=== PATIENT | female | born 1965 ===

== ENCOUNTER → 2021-05-08 15:10 | Outpatient (CLI) | payer MEDICARE, SELFPAY ==
--- NOTE | 2021-05-08 15:12 | DI.RAD.S_ITS ---
PROCEDURE: XR ANKLE LT MIN 3V INDICATIONS: Persistent left ankle pain secondary to inversion sprain TECHNIQUE: 3 views of the ankle were acquired. COMPARISON: None. FINDINGS: Bones: No fractures or dislocations. Ankle mortise is normally aligned. No suspicious bony lesions. Degenerative osteoarthritic change at the tibiotalar joint is moderate to moderately severe, and there are 2 diagonal fixation screws crossing the base of the medial malleolus. Soft tissues: No tibiotalar joint effusion. Achilles tendon appears normal. 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 Prior fixation screws crossing the base of the medial malleolus show no sign of device loosening or disruption. Dictated by: Lorenzo Combs M.D. on 05/08/2021 at 15:31 Approved by: Lorenzo Combs M.D. on 05/08/2021 at 15:33
== END ==
PROVIDERS: PCP Family Medicine; Referring Provider Family Medicine; Visit Provider Family Medicine
DX: M25.572 Pain in left ankle and joints of left foot (principal); M19.172 Post-traumatic osteoarthritis, left ankle and foot; M76.62 Achilles tendinitis, left leg; G89.29 Other chronic pain; T14.90XS Injury, unspecified, sequela
CPT/HCPCS: 73610

== ENCOUNTER → 2021-07-24 11:58 | Outpatient (CLI) | payer MEDICARE, SELFPAY | PROVIDERS: PCP Family Medicine; Referring Provider Internal Medicine Hematology & Oncology; Visit Provider Internal Medicine Hematology & Oncology | DX: D48.1 Neoplasm of uncertain behavior of connective and other soft tissue (principal); M25.572 Pain in left ankle and joints of left foot; Z53.20 Procedure and treatment not carried out because of patient's decision for unspecified reasons ==

== ENCOUNTER → 2021-07-25 11:19 | Outpatient (CLI) | payer MEDICARE, SELFPAY ==
--- NOTE | 2021-07-25 11:40 | DI.CT.S_ITS ---
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 COMPARISON: None. FINDINGS: Image quality: Suboptimal secondary to streak artifact from hardware fixation of the medial malleolus. Bones: Severe tibiotalar joint degeneration. No acute fracture identified. Subtalar joint degeneration also present. Scattered degenerative subchondral sclerosis and spurring. Heterotopic ossification seen at the distal tibiofibular syndesmosis. Soft tissues: Diffuse hindfoot circumferential subcutaneous edema. A discrete mass is not well seen. There is ill-defined subcutaneous stranding present along the anteromedial distal tibia/fibula. Muscles are grossly unremarkable. The alignment appears anatomic IMPRESSION: Severe tibiotalar joint degeneration with near [id number] appearance. A discrete mass is not well seen. If clinically warranted, more detailed examination of the soft tissues could be performed with contrast enhanced MRI. Dictated by: Jesus Knowles M.D. on 07/25/2021 at 13:38 Approved by: Jesus Knowles M.D. on 07/25/2021 at 13:53
== END ==
PROVIDERS: PCP Family Medicine; Referring Provider Internal Medicine Hematology & Oncology; Visit Provider Internal Medicine Hematology & Oncology
DX: D48.1 Neoplasm of uncertain behavior of connective and other soft tissue (principal); M25.572 Pain in left ankle and joints of left foot; M19.072 Primary osteoarthritis, left ankle and foot
CPT/HCPCS: 73702

== ENCOUNTER → 2021-07-26 15:05 | Outpatient (CLI) | payer MEDICARE, SELFPAY | PROVIDERS: PCP Family Medicine; Visit Provider Registered Nurse | DX: N89.8 Other specified noninflammatory disorders of vagina (principal) | CPT/HCPCS: 87210 ==

== ENCOUNTER → 2021-07-31 11:26 | Outpatient (CLI) | payer MEDICARE, SELFPAY ==
--- NOTE | 2021-07-31 11:27 | DI.US.S_ITS ---
PROCEDURE: US PELVIC COMPLETE INDICATIONS: PAIN; HISTORY ENDOMETRIAL HYPERPLASIA TECHNIQUE: Real-time scanning was performed of the pelvic organs, with image documentation. Additional endovaginal scanning was necessary due to incomplete visualization of the adnexal and endometrial structures by transabdominal scanning. COMPARISON: None. FINDINGS: Uterus: Uterus is normal in size at 4.6 x 2.6 x 3.1 cm. The endometrium measures 4.5 mm in combined thickness. Ovaries: 15 mm simple right ovarian cyst; otherwise normal appearance of the ovaries bilaterally. No adnexal masses seen. Other: No pathologic free abdominal or pelvic fluid. IMPRESSION: 1. Normal endometrial thickness measuring 4.5 mm. 2. 15 mm simple right ovarian cyst. Dictated by: Bharat Monroy RR Interpreted: Joaquin Logan MD on 07/31/2021 at 13:26 Transcribed by: MORELIA on 07/31/2021 at 13:28 Approved by: Joaquin Logan M.D. on 07/31/2021 at 13:43
== END ==
PROVIDERS: PCP Family Medicine; Referring Provider Registered Nurse; Visit Provider Registered Nurse
DX: R10.2 Pelvic and perineal pain (principal); R93.89 Abnormal findings on diagnostic imaging of other specified body structures; N83.291 Other ovarian cyst, right side
CPT/HCPCS: 76830; 76856

== ENCOUNTER 2021-10-16 19:04 | Emergency (ER) | payer MEDICARE, SELFPAY ==
[2021-10-16] VITALS (12 sets, daily range): BP systolic 124–143; BP diastolic 70–90; PULSE 63–83; RESP 18–32; TEMP 37.2; O2SAT 96–100; BMI 27.2
[2021-10-16 20:49] LABS: Add Manual Diff / Slide Review NO; Basophils Absolute Auto 100 /uL (0-100); Basophils Percent Auto 1.1 % (0-2); Eosinophils Absolute Auto 100 /uL (0-450); Hematocrit 37.6 % (36-46); Hemoglobin 12.7 g/dL (12.0-16.0); Lymphocytes Absolute Auto 1900 /uL (1100-4500); Lymphocytes Percent Auto 33.4 % (25-40); Mean Corpuscular HGB Conc 33.8 % (30-36); Mean Corpuscular Hemoglobin 30.9 PG (26-34); Mean Corpuscular Volume 91.3 fL (80-100); Monocytes Absolute Auto 400 /uL (0-900); Monocytes Percent Auto 7.7 % (3-14); Neutrophils Absolute Auto 3100 /uL (1500-7000); Neutrophils Percent Auto 55.8 % (50-75); Platelet Count 226 X10^3/uL (150-400); Red Blood Cell Count 4.12 X10^6/uL (4.0-5.2); White Blood Cell Count 5.6 X10^3/uL (4.5-11.0)
[2021-10-16 21:01] LABS: Alanine Aminotransferase 32 IU/L (<35); Albumin 4.4 g/dL (3.5-5.0); Albumin Globulin Ratio 1.6 (1.0-2.8); Alkaline Phosphatase 87 U/L (38-126); Aspartate Aminotransferase 38 IU/L (14-36); BUN Creatinine Ratio 21.2 (6-22); Bilirubin Total 0.4 mg/dL (0.2-1.3); Blood Urea Nitrogen 14 mg/dL (7-17); Calcium 9.3 mg/dL (8.4-10.2); Carbon Dioxide 26 mmol/L (22-32); Chloride 107 mmol/L (98-107); Estimated Glomerular Filt Rate > 60.0 mL/min (>60); Globulin 2.7 g/dL (1.7-4.1); Glucose 102 mg/dL (70-100); HEMOLYSIS 23 (0-50); Lipase 108 U/L (23-300); Potassium 3.5 mmol/L (3.4-5.1); Sodium 141 mmol/L (137-145); Total Protein 7.1 g/dL (6.3-8.2)
[2021-10-16] MEDS: SODIUM CHLORIDE 0.9% 1,000 ML 1000 ML IV (21:26)
[2021-10-16 21:29] LABS: CKMB % Relative Index 0.7 % (1.5-5.0); Creatine Kinase 176 U/L (30-135); Creatine Kinase MB 1.29 ng/mL (<2.37); Troponin I < 0.012 ng/mL (0.01-0.034)
--- NOTE | 2021-10-16 21:47 | DI.CT.S_ITS ---
PROCEDURE: CT ABDOMEN PELVIS W CON INDICATIONS: severe pain lower abdomen TECHNIQUE: After the administration of intravenous contrast, axial sections acquired from the lung bases to the pubic symphysis. Coronal and sagittal reformats were performed. For radiation dose reduction, the following was used: automated exposure control, adjustment of mA and/or kV according to patient size. COMPARISON: None. FINDINGS: Image quality: Excellent. Lung bases: Unremarkable. Heart: No significant findings. ABDOMEN: Liver: Multiple tiny hypodensities throughout both lobes of the liver are too small to characterize, but most likely represent cysts. Gallbladder: Unremarkable. Biliary ducts: Unremarkable. Pancreas: Unremarkable. Spleen: A 1.8 cm circumscribed hypoattenuating lesion in the posterior spleen is most likely benign. Adrenal Glands: Unremarkable. Kidneys and Ureters: Unremarkable. Stomach and Bowel: A few diverticula are seen in the colon without definite signs acute diverticulitis. No signs of small bowel obstruction. The appendix is not definitely visualized, but there are no secondary signs of acute appendicitis. Peritoneum: No abnormal intraperitoneal fluid. No free air. Ventral Wall: No hernias. Abdominal Nodes: No retroperitoneal or mesenteric adenopathy by size criteria. Vessels: Aorta and inferior vena cava are normal in size. PELVIS: Pelvic Organs: Unremarkable. Bladder: Unremarkable. Pelvic Nodes: No enlarged lymph nodes. Miscellaneous: No hernias are seen. Bones: There is mild dextroconvex curvature of the spine and multilevel degenerative changes. Mild multilevel degenerative retrolistheses are seen in the lumbar spine. IMPRESSION: 1. No acute abnormality is identified in the abdomen or pelvis to account for the reported pain. 2. Mild colonic diverticulosis without signs of acute diverticulitis. Dictated by: Roc Morris M.D. on 10/16/2021 at 22:49 Approved by: Roc Morris M.D. on 10/16/2021 at 22:56
--- NOTE | 2021-10-16 21:48 | ED.ABDPAIN ---
HPI - Abdominal Pain General Chief Complaint: Abdominal Pain Stated Complaint: ovarian cyst, heart is acting odd Time Seen by Provider: 10/16/21 20:32 Source: patient Mode of arrival: Ambulatory Limitations: no limitations History of Present Illness HPI narrative: 56-year-old female former smoker with which she reports has a relatively recently diagnosed ovarian cyst presents with her significant other and a chief complaint of lower abdominal pain over the past day or 2 which started in her right lower quadrant and is now long her suprapubic region and radiates to the left side. She states that her discomfort seems to be made worse when she moves and improves with rest. She denies any fever or chills. She denies any nausea, vomiting. She does state that she thinks she has had some increased urination over the past few days but denies any burning, urgency or hematuria. She denies any injury. She has had no recent travel. Also she reports some palpitations which have started over the past day or so but denies chest pain or trouble breathing Related Data Previous Rx's Medication Instructions Recorded diphenhydramine HCl 25 mg capsule 25 mg PO NOW #2 cap 07/24/21 (Benadryl) clonazepam 0.5 mg tablet 0.5 mg PO DAILY PRN #30 tab 09/11/21 sertraline 25 mg tablet 12.5 mg PO DAILY #45 tab 09/11/21 sumatriptan succinate 100 mg See Rx Instructions PO .COMPLEX 09/11/21 tablet (Imitrex) #20 tab pseudoephedrine HCl 240 mg See Rx Instructions .ROUTE 10/01/21 tablet,extended release 24 hr .COMPLEX #30 tab (Sudafed 24 Hour) hydrocodone 5 mg-acetaminophen 325 1 tab PO Q4-6H PRN #10 tab 10/16/21 mg tablet ketorolac 10 mg tablet 10 mg PO Q6H PRN #14 tab 10/16/21 ondansetron 4 mg disintegrating 4 mg PO TID-QID PRN #10 tab 10/16/21 tablet Allergies Allergy/AdvReac Type Severity Reaction Status Date / Time adhesive Allergy Mild rash Verified 10/16/21 19:19 iodine Allergy Mild rash Verified 10/16/21 19:19 Review of Systems Review of Systems Narrative: GENERAL: See HPI HEENT: Denies sinus pain, ear pain, sore throat, difficulty swallowing, dizziness. RESPIRATORY: Denies dyspnea, cough, wheezing, hemoptysis, sputum. CARDIOVASCULAR: Denies chest pain, palpitations, orthopnea, edema, GASTROINTESTINAL: See HPI : See HPI MUSCULOSKELETAL: denies weakness, joint pain, or bony pain SKIN: Denies rash, skin lesions, or other NEUROLOGIC: Denies weakness, headache, numbness, change in speech, confusion, seizures, incoordination. PSYCHIATRIC: No concerning psychosocial issues. 12 point review of systems is negative except for those stated above Patient History Medical History Abnormal Pap smear of cervix Achilles tendinitis of left lower extremity Cervical cancer screening Cervical somatic dysfunction Cervical spine disease (~1999) Chicken pox Chronic back pain (~2017) COVID-19 vaccine first dose declined Cranial somatic dysfunction Dysuria Fibromyalgia Foot pain (~1982) Gout Hypoglycemia Left ankle pain Left forearm pain Low back pain with bilateral sciatica Lumbar region somatic dysfunction Lumbar spine pain (~1999) Migraine Mononucleosis Mumps Osteoporosis Pelvic pain Pelvic somatic dysfunction Pigmented villonodular synovitis of left foot (~1987) Sacral region somatic dysfunction Seasonal allergies Segmental and somatic dysfunction of abdomen and other regions Short-term memory loss Somatic dysfunction of lower extremity Stress and adjustment reaction Thickened endometrium Thoracic region somatic dysfunction Upper extremity somatic dysfunction Vaginal discharge Surgical History Anesthesia History of appendectomy (~1977) History of section (~1992) History of surgery Family History Father Cancer Diabetes mellitus History of heart disease Hyperlipidemia Hypertension Mother History of heart disease Hypertension Kidney disease Sister Diabetes mellitus Grandfather Kidney disease Social History Smoking Status: Former smoker substance use type: marijuana Smoking Status: Former smoker alcohol intake frequency: other Substance Use Type: marijuana Exam Narrative Exam Narrative: GENERAL: [56] year old patient appears stated age. Well-developed patient, in mild distress. HEAD: Atraumatic. Normocephalic. EYES: Pupils equal round and reactive. Extraocular motions intact. No scleral icterus. No injection or drainage. ENT: Nose without bleeding, purulent drainage. Throat without erythema, tonsillar hypertrophy or exudate. Airway patent. NECK: Trachea midline. Non tender CARDIOVASCULAR: Regular rate and rhythm without murmurs, gallops, or rubs. RESPIRATORY: Clear to auscultation. Breath sounds equal bilaterally. No wheezes, rales, or rhonchi. GASTROINTESTINAL: Abdomen soft, non-tender, nondistended. EXTREMITIES: No edema or joint tenderness. BACK: Nontender without deformity or crepitance. No flank tenderness. NEURO: AOx3. SKIN: No rash or erythema of visible areas Initial Vital Signs Initial Vital Signs: Vital Signs Temperature 99 F 10/16/21 19:10 Pulse Rate 83 10/16/21 19:10 Respiratory Rate 18 10/16/21 19:10 Blood Pressure 143/90 H 10/16/21 19:10 Pulse Oximetry 100 10/16/21 19:10 Course Orders Ordered: ED Orders 10/16/21 20:30 Complete Blood Count AUTO DIFF Stat Comprehensive Metabolic Panel Stat Lipase Stat Troponin & CK Cardiac Panel Stat 10/16/21 20:39 EKG-12 Lead Stat 10/16/21 21:47 CT abdomen pelvis w con Stat Discontinued Medications Hydrocodone Bitart/Acetaminophen (Hydrocodone/Acet 5/325 Prepack) 1 bottle MISC SEEINSTR ONE Stop: 10/16/21 23:32 Last Admin: 10/16/21 23:50 Dose: 1 bottle Documented by: CARRILLO Diphenhydramine HCl (Diphenhydramine 50 Mg/Ml Vial) 25 mg IV NOW ONE Stop: 10/16/21 21:58 Last Admin: 10/16/21 22:11 Dose: 25 mg Documented by: CARRILLO Sodium Chloride (Normal Saline 0.9%) 1,000 mls @ 150 mls/hr IV CONT ANAY Sodium Chloride (Normal Saline 0.9%) 1,000 mls @ 1,000 mls/hr IV BOLUS ONE Stop: 10/16/21 21:47 Last Infusion: 10/16/21 22:28 Dose: 0 mls/hr Documented by: Admin: 10/16/21 21:26 Dose: 1,000 mls/hr Documented by: CARRILLO Methylprednisolone (Methylprednisolone 125 Mg/2 Ml Vial) 125 mg IV NOW ONE Stop: 10/16/21 21:58 Last Admin: 10/16/21 22:11 Dose: 125 mg Documented by: CARRILLO Ondansetron HCl (Ondansetron 4 Mg Odt Prepack) 1 bottle MISC SEEINSTR ONE Stop: 10/16/21 23:32 Last Admin: 10/16/21 23:50 Dose: 1 bottle Documented by: CARRILLO Vital Signs Vital signs: Vital Signs - 8 hr 10/16/21 19:10 10/16/21 20:23 10/16/21 20:24 Temperature 99 F Pulse Rate 83 63 66 Respiratory Rate 18 21 19 Blood Pressure 143/90 H 126/73 Pulse Oximetry 100 99 99 10/16/21 20:30 10/16/21 21:00 10/16/21 21:29 Temperature Pulse Rate 69 69 77 Respiratory Rate 21 32 H 28 H Blood Pressure 129/75 133/74 Pulse Oximetry 98 100 99 10/16/21 21:30 10/16/21 22:00 10/16/21 22:38 Temperature Pulse Rate 71 65 75 Respiratory Rate 26 H 18 20 Blood Pressure 124/70 128/74 Pulse Oximetry 99 99 96 10/16/21 23:00 10/16/21 23:30 10/16/21 23:38 Temperature Pulse Rate 66 66 67 Respiratory Rate 28 H 22 25 H Blood Pressure 130/85 Pulse Oximetry 97 97 97 MDM - Abdominal Pain Lab Data Result diagrams: 10/16/21 20:30 10/16/21 20:30 Labs: Lab Results 10/16/21 10/16/21 10/16/21 Range/Units 20:30 20:30 20:30 WBC 5.6 (4.5-11.0) X10^3/uL RBC 4.12 (4.0-5.2) X10^6/uL Hgb 12.7 (12.0-16.0) g/dL Hct 37.6 (36-46) % MCV 91.3 (80-100) fL MCH 30.9 (26-34) PG MCHC 33.8 (30-36) % RDW 13.0 (11.6-14.8) % Plt Count 226 (150-400) X10^3/uL Neut % (Auto) 55.8 (50-75) % Lymph % (Auto) 33.4 (25-40) % [place] % (Auto) 7.7 (3-14) % Eos % (Auto) 2.0 (2-4) % Baso % (Auto) 1.1 (0-2) % Neut # (Auto) 3100 (8271-0954) /uL Lymph # (Auto) 1900 (1243-9515) /uL [place] # (Auto) 400 (0-900) /uL Eos # (Auto) 100 (0-450) /uL Baso # (Auto) 100 (0-100) /uL Sodium 141 (137-145) mmol/L Potassium 3.5 (3.4-5.1) mmol/L Chloride 107 (98-107) mmol/L Carbon Dioxide 26 (22-32) mmol/L BUN 14 (7-17) mg/dL Creatinine 0.66 (0.52-1.04) mg/dL Estimated GFR > 60.0 (>60) mL/min BUN/Creatinine Ratio 21.2 (6-22) Glucose 102 H (70-100) mg/dL Calcium 9.3 (8.4-10.2) mg/dL Total Bilirubin 0.4 (0.2-1.3) mg/dL AST 38 H (14-36) IU/L ALT 32 (<35) IU/L Alkaline Phosphatase 87 (38-126) U/L Total Creatine Kinase 176 H (30-135) U/L CK-MB (CK-2) 1.29 (<2.37) ng/mL CK-MB (CK-2) Rel Index 0.7 L (1.5-5.0) % Troponin I < 0.012 (0.01-0.034) ng/mL Total Protein 7.1 (6.3-8.2) g/dL Albumin 4.4 (3.5-5.0) g/dL Globulin 2.7 (1.7-4.1) g/dL Albumin/Globulin Ratio 1.6 (1.0-2.8) Lipase 108 (23-300) U/L Point of care testing: Urine Dip Bedside Urine Glucose Negative Bedside Urine Bilirubin - Negative Bedside Urine Ketone - Negative Urine Specific [place] 1.030 Bedside Urine Occult Blood - Negative Bedside Urine pH 6.0 Bedside Urine Protein - Negative Bedside Urine Urobilinogen - Negative Bedside Urine Nitrite - Negative Bedside Urine Leukocytes - Negative Esterase MDM Narrative Medical decision making narrative: Patient with reassuring history and physical exam. Labs show no significant abnormalities and CT of the abdomen and pelvis was unremarkable. Urine showed no signs of infection. Multiple diagnoses including diverticulitis, bowel obstruction, urine infection, kidney stone and others considered but thought unlikely given her findings. Return precautions discussed and questions answered to her apparent satisfaction Discharge Plan Departure Patient Disposition: Home Clinical Impression: Abdominal pain Instructions: DI for Abdominal Pain-Adult Activity Restrictions/Additional Instructions: *You have been diagnosed with [lower abdominal pain with a very reassuring history, physical exam, labs and CT scan. *What to do: *Please continue to take your regular medications as directed. [ x] New medication prescriptions sent to your pharmacy: [[facility] ] [ ] New medication written as a paper prescription [ ] No new medications given *Please follow up with your primary care provider in 2-3 days, call for an appointment. Let them know you were seen in the Emergency Department and that we ask that you be seen in follow up. We will electronically transmit a record of today's note if your PCP is in our system *If you do not have a primary care provider please contact the [facility] Resource line at [phone]. They will ask some questions about your medical history and help get you set up with a doctor in the community. *Return to Emergency Department if you should have any new, worsening or concerning symptoms, such as [fever greater than 101 F, shaking chills, worsening pain, persistent vomiting or other bothersome symptoms] You have been prescribed a short course of narcotic medications. These are potentially dangerous and addictive medications that should be used carefully. While on these medications you cannot drive or operate heavy machinery. Additionally, you cannot sign legal documents or perform any duties such as this. 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 Please understand that we cannot provide further refills of narcotics or controlled substances through the ED and your pain management will need to be through your Primary Care Provider Prescriptions: New hydrocodone-acetaminophen 5-325 mg tablet 1 tab PO Q4-6H PRN (Reason: pain) Qty: 10 0RF ketorolac 10 mg tablet 10 mg PO Q6H PRN (Reason: pain) Qty: 14 0RF ondansetron 4 mg tablet,disintegrating 4 mg PO TID-QID PRN (Reason: nausea and vomiting) Qty: 10 0RF No Action sertraline 25 mg tablet 12.5 mg PO DAILY Qty: 45 1RF Rx Instructions: Increase to 1 tab daily after two weeks if no effect is noticed sumatriptan succinate [Imitrex] 100 mg tablet See Rx Instructions PO .COMPLEX Qty: 20 1RF Rx Instructions: take 1 tab at onset of headache; if no relief, may repeat 1 tab after at least 2 hrs; max = 2 tabs/24 hrs PO clonazepam 0.5 mg tablet 0.5 mg PO DAILY PRN (Reason: anxiety) Qty: 30 0RF Sudafed 24 Hour 240 mg tablet extended release 24 hr See Rx Instructions .ROUTE .COMPLEX Qty: 30 0RF Dose Instruction: TAKE 1 TABLET BY MOUTH ONCE DAILY NEEDED FOR NAUSEA FOR NASAL CONGESTION Rx Instructions: TAKE 1 TABLET BY MOUTH ONCE DAILY NEEDED FOR NAUSEA FOR NASAL CONGESTION diphenhydramine HCl [Benadryl] 25 mg Capsule 25 mg PO NOW Qty: 2 0RF Rx Instructions: take 2 capsules (50mg) one hour prior to exam Referrals: Paddy Engle DO [Primary Care Provider] -
[2021-10-16] MEDS: methylPREDNISolone 125 MG/2 ML VIAL IV (22:11)
[2021-10-16] MEDS: diphenhydrAMINE 50 MG/ML VIAL 25 MG IV (22:11)
[2021-10-16] MEDS: HYDROCODONE/ACET 5/325 PREPACK 1 BOTTLE MISC (23:50)
[2021-10-16] MEDS: ONDANSETRON 4 MG ODT PREPACK 1 BOTTLE MISC (23:50)
== END 2021-10-16 23:55 | disposition home or self-care (01) ==
PROVIDERS: Emergency Provider Emergency Medicine; PCP Family Medicine
DX: R10.9 Unspecified abdominal pain (principal)
CPT/HCPCS: 36415; 74177; 80053; 81003; 82550; 82553; 83690; 84484; 85025; 93005; 96361; 96374; 96375; 99284; J1200; J2930; Q9967

== ENCOUNTER → 2021-10-25 09:59 | Outpatient (CLI) | payer MEDICARE, SELFPAY ==
--- NOTE | 2021-10-25 10:00 | DI.US.S_ITS ---
PROCEDURE: US PELVIC COMPLETE INDICATIONS: F/U simple R ovarian cyst seen on 07/31/21 US TECHNIQUE: Real-time scanning was performed of the pelvic organs, with image documentation. Additional endovaginal scanning was necessary due to incomplete visualization of the adnexal and endometrial structures by transabdominal scanning. COMPARISON: [facility], CT, CT ABDOMEN PELVIS W CON, 10/16/2021, 21:55. [facility], US, US PELVIC COMPLETE, 07/31/2021, 12:26. FINDINGS: Uterus: Uterus is retroverted and normal in size at 5.6 x 1.7 x 3.7 cm. The myometrium is homogeneous. The endometrium measures 2.7 mm combined thickness. Ovaries: The right ovary measures 2.9 x 1.5 x 1.5 cm cm, with a calculated ovarian volume of 3.4 cc. The left ovary is not visualized. A 1.2 x 1.3 x 1.1 cm right ovarian simple cyst previously measured 1.5 x 1.2 x 1.2 cm. No adnexal masses are seen. Other: No pathologic free abdominal or pelvic fluid. IMPRESSION: Mildly decreased size of a 1.3 cm right ovarian cyst. We strive to produce accurate, complete, and clear reports of imaging services. To assist us in improving patient care, this report was composed using standard report templates and voice recognition software. Therefore, it may contain abnormal punctuation, insertions and/or omissions. Occasional wrong-word or sound-alike substitutions may occur. Though we review the report and make efforts to correct it, we do recommend that the report be read carefully in proper context to recognize any text inaccuracies. Dictated by: Roc Morris M.D. on 10/25/2021 at 10:38 Approved by: Roc Morris M.D. on 10/25/2021 at 10:43
== END ==
PROVIDERS: PCP Family Medicine; Referring Provider Specialist; Visit Provider Specialist
DX: R10.2 Pelvic and perineal pain (principal); N83.291 Other ovarian cyst, right side
CPT/HCPCS: 76856

== ENCOUNTER 2022-08-11 17:54 | Emergency (ER) | payer OTHER, SELFPAY ==
[2022-08-11 18:16] VITALS: BP 133/80; PULSE 69; RESP 25; TEMP 36.4; O2SAT 99; BMI 26.2
[2022-08-11] MEDS: TET,DIPH,PERTUSS(ACELL),VAC/PF 0.5 ML SYRINGE IM (20:30)
--- NOTE | 2022-08-11 20:58 | DI.RAD.S_ITS ---
PROCEDURE: XR TIBIA FIBULA LT 2V INDICATIONS: dog bite mid anterior swanson eval for FB TECHNIQUE: 2 views of the tibia and fibula were acquired. COMPARISON: None. FINDINGS: Bones: No acute fractures or dislocations. There are postsurgical changes partially visualized in the ankle with 2 fixation screws traversing the medial malleolus. There are moderate to severe degenerative changes of the left tibiotalar joint with joint space narrowing, subchondral sclerosis, and prominent osteophytosis. Soft tissues: No radiopaque foreign bodies. No suspicious soft tissue calcifications or masses. IMPRESSION: 1. No fractures or radiopaque foreign bodies within the left lower leg. Dictated by: Mark Falk M.D. on 08/11/2022 at 23:39 Approved by: Mark Falk M.D. on 08/11/2022 at 23:41
--- NOTE | 2022-08-11 20:58 | ED.ANIMALBIT ---
HPI - Animal Bite General Chief Complaint: Animal Bite Stated Complaint: Left leg dog bite cancer of left leg Time Seen by Provider: 08/11/22 20:47 Source: patient Mode of arrival: Family Vehicle History of Present Illness HPI narrative: Patient is a 57-year-old female who is here for evaluation of a dog bite to her left leg. She states that she was bitten by the neighbor's dog earlier today. She does have a history of ?cancer? in her left leg. She is not currently on any sort of chemotherapy medications. Related Data Previous Rx's Medication Instructions Recorded diphenhydramine HCl 25 mg capsule 25 mg PO NOW allergy to iodine #2 07/24/21 (Benadryl) caps sumatriptan succinate 100 mg See Rx Instructions PO .COMPLEX 09/11/21 tablet (Imitrex) #20 tabs ketorolac 10 mg tablet 10 mg PO Q6H PRN pain #14 tabs 10/16/21 hydrocodone 5 mg-acetaminophen 325 1 tab PO Q4-6H PRN pain #10 tabs 10/23/21 mg tablet ondansetron 4 mg disintegrating 4 mg PO TID-QID PRN nausea and 10/23/21 tablet vomiting #10 tabs sertraline 25 mg tablet See Rx Instructions .Route 02/10/22 .COMPLEX #45 tabs Sudafed Sinus Congestion 24HR 240 See Rx Instructions .Route 03/17/22 MG Oral Tablet Extended Release 24 .COMPLEX #30 tabs Hour pseudoephedrine HCl 240 mg See Rx Instructions .Route 05/07/22 tablet,extended release 24 hr .COMPLEX #30 tabs (Sudafed 24 Hour) clonazepam 0.5 mg tablet See Rx Instructions .Route 05/19/22 .COMPLEX #45 tabs Allergies Allergy/AdvReac Type Severity Reaction Status Date / Time adhesive Allergy Mild rash Verified 08/11/22 18:16 iodine Allergy Mild rash Verified 08/11/22 18:16 Review of Systems Musculoskeletal Musculoskeletal: Reports system reviewed and no additional complaints, except as documented Integumentary/Breasts Skin/Breast: Reports system reviewed and no additional complaints, except as documented Neurologic Neurologic: Reports system reviewed and no additional complaints, except as documented Hematologic/Lymphatic On Anticoagulants: No Patient History Medical History Abnormal Pap smear of cervix Achilles tendinitis of left lower extremity Cervical cancer screening Cervical somatic dysfunction Cervical spine disease (~1999) Chicken pox Chronic back pain (~2017) COVID-19 vaccine first dose declined Cranial somatic dysfunction Dysuria Fibromyalgia Foot pain (~1982) Gout Hypoglycemia Left ankle pain Left forearm pain Low back pain with bilateral sciatica Lumbar region somatic dysfunction Lumbar spine pain (~1999) Migraine Mononucleosis Mumps Osteoporosis Pelvic pain Pelvic somatic dysfunction Pigmented villonodular synovitis of left foot (~1987) Sacral region somatic dysfunction Seasonal allergies Segmental and somatic dysfunction of abdomen and other regions Short-term memory loss Somatic dysfunction of lower extremity Stress and adjustment reaction Thickened endometrium Thoracic region somatic dysfunction Upper extremity somatic dysfunction Vaginal discharge Surgical History Anesthesia History of appendectomy (~1977) History of section (~1992) History of surgery Family History Father Cancer Diabetes mellitus History of heart disease Hyperlipidemia Hypertension Mother History of heart disease Hypertension Kidney disease Sister Diabetes mellitus Grandfather Kidney disease Social History Smoking Status: Current every day smoker substance use type: marijuana Smoking Status: Current every day smoker alcohol intake frequency: other Substance Use Type: marijuana Exam Initial Vital Signs Initial Vital Signs: Vital Signs Temperature 97.6 F 08/11/22 18:16 Pulse Rate 69 08/11/22 18:16 Respiratory Rate 25 H 08/11/22 18:16 Blood Pressure 133/80 08/11/22 18:16 Pulse Oximetry 99 08/11/22 18:16 Oxygen Delivery Method 08/11/22 18:16 [facility] Head: normal to inspection and normocephalic Skin Other: Patient with a 1 cm x 1 cm area of redness on the distal 1/3 anterior left. There are 2 small puncture wounds in this area. No surrounding erythema. No bleeding. Neuro Sensory Exam: no sensory deficits noted Extrem Other: Bite wound left lower extremity Psych Appearance: grossly normal and well kempt Course Orders Ordered: ED Orders 08/11/22 20:58 XR tibia fibula LT 2V Stat Discontinued Medications Diphtheria/Tetanus/Acell Pertussis (Tet,Diph,Pertuss(Acell),Vac/Pf 0.5 Ml Syringe) 0.5 ml IM .ONCE ONE Stop: 08/11/22 18:29 Last Admin: 08/11/22 20:30 Dose: 0.5 ml Documented By: KP Vital Signs Vital signs: Vital Signs - 8 hr 08/11/22 23:04 08/11/22 23:04 Pulse Rate 69 Respiratory Rate 17 Blood Pressure 129/83 Pulse Oximetry 99 Oxygen Delivery Method Room Air MDM - Animal Bite Imaging Data Extremity x-ray #1: Radiologist's Impression: [address] [address] XRay Report Signed Patient: Teresa Bhatia MR#: [id number] : 1965 Acct:[id number] Age/Sex: 57 / F Date of Service: 08/11/22 Loc: ED Accession Number: [id number] ?? Procedure: XR tibia fibula LT 2V Ordering Provider: Santana Rosen D.O. PROCEDURE:? XR TIBIA FIBULA LT 2V ? INDICATIONS:? dog bite mid anterior swanson eval for FB ? TECHNIQUE:? 2 views of the tibia and fibula were acquired.? ? COMPARISON:? None. ? FINDINGS:? ? Bones:? No acute fractures or dislocations.? There are postsurgical changes partially visualized in the ankle with 2 fixation screws traversing the medial malleolus.? There are moderate to severe degenerative changes of the left tibiotalar joint with joint space narrowing, subchondral sclerosis, and prominent osteophytosis. ? Soft tissues:? No radiopaque foreign bodies.? No suspicious soft tissue calcifications or masses.? ? IMPRESSION:? ? 1. No fractures or radiopaque foreign bodies within the left lower leg.? ? ? Dictated by: Mark Falk M.D. on 08/11/2022 at 23:39 ? ? Approved by: Mark Falk M.D. on 08/11/2022 at 23:41?? [facility] Narrative Medical decision making narrative: No foreign body noted on the x-ray. Small area of redness in the left anterior swanson consistent with a dog bite. No active bleeding. No signs of infection. Her tetanus was updated. No indication for antibiotics. She is not on any sort of immunosuppression chemotherapy. Did discuss return precautions and follow-up instructions. She expressed understanding and agreement with plan. Discharge Plan Departure Patient Disposition: Home Clinical Impression: Dog bite of extremity Instructions: DI for Dog Bite Activity Restrictions/Additional Instructions: Just keep the area clean with soap and water. You can shower like normal. You can also put topical antibiotic ointment over the area. Return to the emergency department for any new or worsening symptoms like we discussed and concerns for any infection. Prescriptions: No Action sumatriptan succinate [Imitrex] 100 mg tablet See Rx Instructions PO .COMPLEX Qty: 20 1RF Rx Instructions: take 1 tab at onset of headache; if no relief, may repeat 1 tab after at least 2 hrs; max = 2 tabs/24 hrs PO sertraline 25 mg tablet See Rx Instructions .ROUTE .COMPLEX Qty: 45 3RF Dose Instruction: TAKE 1/2 TABLET BY MOUTH ONCE DAILY MAY INCREASE TO 1 TABLET DAILY AFTER 2 WEEKS IF NO EFFECT IS NOTICED. Rx Instructions: TAKE 1/2 TABLET BY MOUTH ONCE DAILY MAY INCREASE TO 1 TABLET DAILY AFTER 2 WEEKS IF NO EFFECT IS NOTICED. Sudafed Sinus Congestion 24HR 240 MG Oral Tablet Extended Release 24 Hour See Rx Instructions .ROUTE .COMPLEX Qty: 30 0RF Dose Instruction: TAKE 1 TABLET BY MOUTH ONCE DAILY NEEDED FOR NAUSEA FOR NASAL CONGESTION Rx Instructions: TAKE 1 TABLET BY MOUTH ONCE DAILY NEEDED FOR NAUSEA FOR NASAL CONGESTION Sudafed 24 Hour 240 mg tablet extended release 24 hr See Rx Instructions .ROUTE .COMPLEX Qty: 30 5RF Dose Instruction: TAKE 1 TABLET BY MOUTH ONCE DAILY NEEDED FOR NAUSEA OR NASAL CONGESTION Rx Instructions: TAKE 1 TABLET BY MOUTH ONCE DAILY NEEDED FOR NAUSEA OR NASAL CONGESTION clonazepam 0.5 mg tablet See Rx Instructions .ROUTE .COMPLEX Qty: 45 1RF Rx Instructions: Take 1/2 tablet by mouth twice daily as needed for anxiety hydrocodone-acetaminophen 5-325 mg tablet 1 tab PO Q4-6H PRN (Reason: pain) Qty: 10 0RF ondansetron 4 mg tablet,disintegrating 4 mg PO TID-QID PRN (Reason: nausea and vomiting) Qty: 10 0RF diphenhydramine HCl [Benadryl] 25 mg Capsule 25 mg PO NOW Qty: 2 0RF Rx Instructions: take 2 capsules (50mg) one hour prior to exam ketorolac 10 mg tablet 10 mg PO Q6H PRN (Reason: pain) Qty: 14 0RF Referrals: Oniel,Nahun C, DO [Primary Care Provider] - Visit Report Forms: Patient Portal/API
[2022-08-11 23:04] VITALS: BP 129/83; PULSE 69; RESP 17; O2SAT 99
--- NOTE | 2022-08-11 23:05 | PC.NURSE ---
Assessment completed by provider without RN involvement
== END 2022-08-11 23:06 | disposition home or self-care (01) ==
PROVIDERS: Emergency Provider Emergency Medicine; PCP Family Medicine
DX: S81.852A Open bite, left lower leg, initial encounter (principal); W54.0XXA Bitten by dog, initial encounter; Z23 Encounter for immunization
CPT/HCPCS: 73590; 90471; 99283; 90715

== ENCOUNTER → 2023-02-20 11:00 | Outpatient (CLI) | payer MEDICARE, SELFPAY ==
--- NOTE | 2023-02-20 12:51 | DI.RAD.S_ITS ---
PROCEDURE: XR ANKLE LT MIN 3V INDICATIONS: pain TECHNIQUE: 3 views of the ankle were acquired. COMPARISON: [facility], CR, XR ANKLE LT MIN 3V, 05/08/2021, 15:10. FINDINGS: Bones: Medial malleolus fixation. There is severe joint space narrowing of the tibiotalar joint, with associated osteophytosis and subchondral sclerosis. Soft tissues: No tibiotalar joint effusion. Achilles tendon appears normal. IMPRESSION: Severe ankle osteoarthritis. Dictated by: Kale Thomason M.D. on 02/20/2023 at 15:08 Approved by: Kale Thomason M.D. on 02/20/2023 at 15:09
--- NOTE | 2023-02-20 12:51 | DI.MG.S_ITS ---
BILATERAL DIGITAL SCREENING MAMMOGRAM 3D/2D WITH CAD: 02/20/2023 CLINICAL: Routine screening. Baseline by default. No prior exams were available for comparison. There are scattered areas of fibroglandular density in both breasts (category b / 25%-50% glandular tissue). Current study was also evaluated with a Computer Aided Detection (CAD) system. There is an oval equal density asymmetry with an obscured and circumscribed margin in the right breast middle depth medial region seen on the craniocaudal view only. There is an oval asymmetry in the left breast middle depth medial region seen on the craniocaudal view only. No other significant masses or calcifications are seen in either breast. IMPRESSION: INCOMPLETE: NEEDS ADDITIONAL IMAGING EVALUATION The oval equal density asymmetry in the right breast middle depth medial region seen on the craniocaudal view only is indeterminate. Additional views with possible ultrasound are recommended. The oval asymmetry in the left breast middle depth medial region seen on the craniocaudal view only is indeterminate. Additional views with possible ultrasound are recommended. Based on the Tyrer Cuzick model (a risk assessment model) the patient's lifetime risk is 7.0% and her 10 year risk is 2.7%. According to the ACR, ACS, and NCCN guidelines, an annual breast MRI exam along with mammogram is recommended if the patient's lifetime risk is 20% or greater. This exam was interpreted at Station ID: [id number]. NOTE: For mammograms, a report in lay terms will be sent to the patient. Approximately 15% of breast malignancies will not be visualized mammographically. In the management of a palpable breast mass, a negative mammogram must not discourage biopsy of a clinically suspicious lesion. Electronically Signed By: Luz desouza/josefa:02/20/2023 16:15:03 letter sent: Additional Imaging Needed ACR BI-RADS Category 0: Incomplete 3340F
--- NOTE | 2023-02-20 12:58 | DI.RAD.S_ITS ---
PROCEDURE: XR LUMBAR SPINE 2-3V INDICATIONS: Worsening Back pain TECHNIQUE: 3 views of the lumbar spine were acquired. COMPARISON: None. FINDINGS: Bones: 5 [id number] vertebrae are present. Convex right scoliosis, Vazquez angle of 21 ?. Severe disc height loss at L1-2. Moderate disc height loss at L2-3 and mild disc height loss at remaining levels. Opposing endplate sclerosis at L1-2. Stepwise grade 1 retrolisthesis of L1 on L2 and L2 on L3. Suspect facet arthrosis L3 through S1. Soft tissues: Overlying bowel gas pattern is normal. No suspicious soft tissue calcifications. IMPRESSION: Multilevel degenerative disc disease, most prominent at L1-2. Convex right scoliosis. Moderate multilevel facet arthrosis. Dictated by: Kale Thomason M.D. on 02/20/2023 at 15:12 Approved by: Kale Thomason M.D. on 02/20/2023 at 15:14
--- NOTE | 2023-02-20 12:58 | DI.RAD.S_ITS ---
PROCEDURE: XR THORACIC SPINE 2V INDICATIONS: Worsening Back pain TECHNIQUE: 3 views of the thoracic spine were acquired. COMPARISON: None. FINDINGS: Bones: No fractures or dislocations. No suspicious bony lesions. 12 pairs of ribs are noted, and appear intact where visualized. Mild disc height loss at T5-6. Soft tissues: No paravertebral stripe thickening. IMPRESSION: No significant degenerative changes. Dictated by: Kale Thomason M.D. on 02/20/2023 at 15:10 Approved by: Kale Thomason M.D. on 02/20/2023 at 15:12
--- NOTE | 2023-02-20 12:58 | DI.RAD.S_ITS ---
PROCEDURE: XR CERVICAL SPINE 2V OR 3V INDICATIONS: Worsening Back pain TECHNIQUE: 3 view(s) of the cervical spine were acquired. COMPARISON: None. FINDINGS: Bones: No fractures or dislocations to the C7 level. The lateral masses of C1 appear intact on the odontoid view. No suspicious bony lesions. Moderate degenerative disc disease at C5-6 and C6-7. Mild disc height loss at remaining levels. Moderate facet arthrosis at C3-4, mild at C4-5. Soft tissues: No prevertebral soft tissue swelling. IMPRESSION: Mild to moderate, multilevel degenerative disc disease. Moderate facet arthrosis at C3-4. Dictated by: Kale Thomason M.D. on 02/20/2023 at 15:09 Approved by: Kale Thomason M.D. on 02/20/2023 at 15:10
[2023-02-23 10:07] LABS: Fecal Immunochemical Test Negative (Negative)
== END ==
PROVIDERS: PCP Family Medicine; Referring Provider Family Medicine; Visit Provider Family Medicine
DX: Z12.31 Encounter for screening mammogram for malignant neoplasm of breast (principal); Z12.11 Encounter for screening for malignant neoplasm of colon; D48.1 Neoplasm of uncertain behavior of connective and other soft tissue; G89.29 Other chronic pain; M48.9 Spondylopathy, unspecified; M99.01 Segmental and somatic dysfunction of cervical region; M99.02 Segmental and somatic dysfunction of thoracic region; M99.03 Segmental and somatic dysfunction of lumbar region; M51.36 Other intervertebral disc degeneration, lumbar region; M41.86 Other forms of scoliosis, lumbar region; M47.816 Spondylosis without myelopathy or radiculopathy, lumbar region; M50.30 Other cervical disc degeneration, unspecified cervical region; M47.812 Spondylosis without myelopathy or radiculopathy, cervical region; N64.89 Other specified disorders of breast; M19.072 Primary osteoarthritis, left ankle and foot
CPT/HCPCS: 72040; 72070; 72100; 73610; 77063; 77067; 82274

== ENCOUNTER → 2023-03-25 15:40 | Outpatient (CLI) | payer MEDICARE, SELFPAY | PROVIDERS: PCP Family Medicine; Visit Provider Nurse Practitioner Family | DX: N89.8 Other specified noninflammatory disorders of vagina (principal) | CPT/HCPCS: 87210 ==

== ENCOUNTER → 2023-04-14 13:25 | Outpatient (CLI) | payer MEDICARE, SELFPAY ==
--- NOTE | 2023-04-14 13:26 | DI.US.S_ITS ---
LIMITED ULTRASOUND OF LEFT BREAST: 04/14/2023 CLINICAL: Patient returns today to evaluate a focal asymmetry in the left breast. Comparison is made to exams dated: 04/14/2023 mammogram and 02/20/2023 mammogram - [facility]. Color flow ultrasound of the left breast upper outer quadrant was performed. Armenta scale images of the real-time examination were reviewed. There is a 0.5 cm round cyst in the left breast at 10 o'clock anterior depth 3 cm from the nipple. This round cyst is hypoechoic with no posterior acoustic shadowing or enhancement. This correlates with mammography findings. Color flow imaging demonstrates that there is no vascularity present. There also is a 0.6 cm oval cyst in the left breast at 10 o'clock middle depth 3 cm from the nipple. This oval cyst is nearly anechoic with posterior acoustic enhancement. This correlates with mammography findings. Color flow imaging demonstrates that there is no vascularity present. Additionally, there is a 0.5 cm round cyst in the left breast at 12 o'clock middle depth 3 cm from the nipple. This round cyst is hypoechoic with posterior acoustic enhancement. This correlates with mammography findings. Color flow imaging demonstrates that there is no vascularity present. IMPRESSION: PROBABLY BENIGN The 0.5 cm round cyst in the left breast at 10 o'clock anterior depth is consistent with a complicated cyst and is probably benign. The 0.6 cm oval cyst in the left breast at 10 o'clock middle depth is consistent with a complicated cyst and is probably benign. The 0.5 cm round cyst in the left breast at 12 o'clock middle depth is consistent with a complicated cyst and is probably benign. A follow-up left ultrasound in 6 months is recommended to demonstrate stability. Findings and recommendations were conveyed to the patient at time of exam. This exam was interpreted at Station ID: [id number]. Electronically Signed By: Luz desouza/:04/14/2023 17:19:25 letter sent: Followup Recommended Ultrasound BI-RADS: 3 Probably benign
--- NOTE | 2023-04-14 13:26 | DI.US.S_ITS ---
LIMITED ULTRASOUND OF RIGHT BREAST: 04/14/2023 CLINICAL: Patient returns today to evaluate an asymmetry in the right breast. Comparison is made to exams dated: 04/14/2023 mammogram and 02/20/2023 mammogram - [facility]. Color flow ultrasound of the right breast 1 o'clock region was performed. Armenta scale images of the real-time examination were reviewed. There are several tiny minimally complicated cysts in the breast. One of the more conspicuous that corresponds to the mammogram is a 0.5 cm oval cyst in the right breast at 1 o'clock anterior depth 2 cm from the nipple. This oval cyst is hypoechoic with posterior acoustic enhancement. Color flow imaging demonstrates that there is no vascularity present. IMPRESSION: PROBABLY BENIGN The 0.5 cm oval cyst in the right breast is probably benign. A follow-up right ultrasound in 6 months is recommended to demonstrate stability. Findings and recommendations were conveyed to the patient at time of exam. This exam was interpreted at Station ID: [id number]. Electronically Signed By: Luz desouza/:04/14/2023 17:21:36 letter sent: Followup Recommended Ultrasound BI-RADS: 3 Probably benign
--- NOTE | 2023-04-14 13:26 | DI.MG.S_ITS ---
BILATERAL DIGITAL DIAGNOSTIC MAMMOGRAM 3D/2D: 04/14/2023 CLINICAL: Additional evaluation requested from prior study. Comparison is made to exam dated: 02/20/2023 mammogram - [facility]. Both breasts are heterogeneously dense, which may obscure small masses (category c / 51-75% glandular tissue). There is an oval 9 mm equal density focal asymmetry with an obscured and circumscribed margin in the right breast 1:00. This is seen in additional views. There are a few asymmetries in the left breast upper outer quadrant seen in additional views. No other significant masses or calcifications are seen in either breast. IMPRESSION: INCOMPLETE: NEEDS ADDITIONAL IMAGING EVALUATION Confirmation of bilateral asymmetries with additional views. Bilateral ultrasound for asymmetries in each breast is recommended and was performed immediately following this exam. Based on the Tyrer Cuzick model (a risk assessment model) the patient's lifetime risk is 10.2% and her 10 year risk is 4.1%. According to the ACR, ACS, and NCCN guidelines, an annual breast MRI exam along with mammogram is recommended if the patient's lifetime risk is 20% or greater. This exam was interpreted at Station ID: [id number]. NOTE: For mammograms, a report in lay terms will be sent to the patient. Approximately 15% of breast malignancies will not be visualized mammographically. In the management of a palpable breast mass, a negative mammogram must not discourage biopsy of a clinically suspicious lesion. Electronically Signed By: Luz desouza/:04/14/2023 17:00:49 ACR BI-RADS Category 0: Incomplete 3340F
== END ==
PROVIDERS: PCP Family Medicine; Referring Provider Family Medicine; Visit Provider Family Medicine
DX: R92.8 Other abnormal and inconclusive findings on diagnostic imaging of breast (principal); N60.02 Solitary cyst of left breast; N60.01 Solitary cyst of right breast
CPT/HCPCS: 76642; 77066; G0279

== ENCOUNTER → 2023-05-11 14:53 | Outpatient (CLI) | payer MEDICARE, SELFPAY ==
--- NOTE | 2023-05-11 | DI.MRI.S_ITS ---
PROCEDURE: MR ANKLE LT WO/W CON INDICATIONS: Villonodular synovitis (pigmented), LEFT ANKLE TECHNIQUE: Noncontrast sagittal T1 spin echo and T2 fast spin echo with fat saturation, axial proton density fast spin echo and T2 fast spin echo with fat saturation, axial T1 spin echo with fat saturation, coronal T1 spin echo and T2 fast spin echo with fat saturation through the ankle/hindfoot. Post-contrast axial, coronal, and sagittal T1 spin echo with fat saturation through the ankle/hindfoot. COMPARISON: [facility], CR, XR ANKLE LT MIN 3V, 02/20/2023, 13:05. FINDINGS: Image quality: Metal artifact related to orthopedic hardware obscures adjacent structures. Diagnostic information is obtained. Bones and joints: Postsurgical changes are seen from medial malleolar fracture fixation with associated metal artifact that obscures adjacent structures. Severe joint space narrowing is seen in the mortise joint with subchondral sclerosis, remodeling of the articular surfaces, and bulky marginal osteophyte formation that likely contributes to osseous impingement. A nonedematous ossification is seen along the anteromedial aspect of the ankle. Subchondral edema is seen at the 2nd tarsometatarsal joint. No significant joint effusions. No enhancing soft tissue mass. Medial structures: The deltoid ligament is obscured by metal artifact. The visualized portions of the spring ligament complex are intact. The posterior tibialis, flexor digitorum longus, and flexor hallucis longus tendons are intact. Mortise joint osteophyte formation is seen projecting into the tarsal tunnel with possible impingement on the posterior tibial nerve. Lateral structures: There is partial ossification of the anterior and posterior tibiofibular ligaments. The anterior talofibular, calcaneofibular, and posterior talofibular ligaments appear intact. There is tendinosis and suspected low-grade partial longitudinal tearing of the peroneus brevis tendon at the level of the distal fibula with tendon reconstitution at the level of the retrotrochlear eminence. There is mild partial effacement of the normal fat signal in the sinus tarsi. Anterior structures: Anterior mortise joint osteophyte formation mildly impinges upon the tibialis anterior tendon without significant tendinosis. The extensor hallucis longus and extensor digitorum longus tendons appear intact. Posterior and plantar structures: Achilles tendon is intact. Medial and lateral bands of the plantar fascia are of normal thickness. No abductor digiti quinti muscle atrophy to suggest Oreilly neuropathy. IMPRESSION: 1. Postsurgical changes from medial malleolar fracture fixation with associated metal artifact. 2. Severe mortise joint degenerative changes with remodeling of the articular surfaces and bulky marginal osteophyte formation that likely contributes to osseous impingement. 3. No significant joint effusion or synovial hypertophy. No enhancing soft tissue mass. 4. Posterior medial mortise joint osteophyte formation extends into the tarsal tunnel with possible impingement of the posterior tibial nerve. No significant denervation changes are seen within the foot musculature. 5. Anterior medial osteophyte formation mildly impinges upon the tibialis anterior muscle without signs of significant tendinosis or tendon tearing. 6. Tendinosis and suspected focal chronic partial longitudinal tearing of the peroneus brevis tendon at the level of the distal fibula. 7. Moderate 2nd tarsometatarsal joint osteoarthrosis. Approved by: Roc Morris M.D. on 05/15/2023 at 16:22
== END ==
PROVIDERS: PCP Family Medicine; Referring Provider Physician Assistant Medical; Visit Provider Physician Assistant Medical
DX: M19.072 Primary osteoarthritis, left ankle and foot
CPT/HCPCS: 73723; A9579

== ENCOUNTER → 2023-12-28 11:12 | Outpatient (CLI) | payer MEDICARE, SELFPAY ==
--- NOTE | 2023-12-28 11:13 | DI.MRI.S_ITS ---
PROCEDURE: MR HEAD/BRAIN WO CON INDICATIONS: memory loss TECHNIQUE: Noncontrast axial T1 spin echo, axial T2 fast spin echo, sagittal and axial FLAIR, coronal T2 fast spin echo, axial gradient echo, axial diffusion and ADC through the brain. COMPARISON: None. FINDINGS: Image quality: Excellent. CSF Spaces: Basal cisterns are patent. No extra-axial fluid collections. Ventricles are normal in size and shape. Brain: No intracranial masses or hemorrhage. Armenta/white matter interface is normal. Brainstem appears normal. Diffusion-weighted images demonstrate no acute infarct. Normal intravascular flow voids are present. Both hippocampal formations have appropriate volume, morphology and signal characteristics Skull and face: Calvarium has normal marrow signal. Orbits appear normal. Sinuses: Sinuses and mastoids are clear. IMPRESSION: Mild atrophy and white matter chronic ischemic change Approved by: Ja Walter M.D. on 12/28/2023 at 15:52
== END ==
LOC: MRI 11:12
PROVIDERS: PCP Family Medicine; Referring Provider Psychiatry & Neurology Neurology; Visit Provider Psychiatry & Neurology Neurology
DX: R41.3 Other amnesia (principal)
CPT/HCPCS: 70551

== ENCOUNTER → 2025-10-17 11:18 | Outpatient (CLI) | payer MEDICARE, SELFPAY ==
--- NOTE | 2025-10-17 11:19 | DI.RAD.S_ITS ---
PROCEDURE: XR THORACIC SPINE 3V INDICATIONS: back pain TECHNIQUE: 3 views of the thoracic spine were acquired. COMPARISON: [facility], CR, XR LUMBAR SPINE 2-3V, 10/17/2025, 11:21. [facility], CR, XR THORACIC SPINE 2V, 02/20/2023, 13:05. FINDINGS: Bones: No fractures or dislocations. No suspicious bony lesions. 12 pairs of ribs are noted, and appear intact where visualized. Mild levoscoliosis of the mid to lower thoracic spine Jenise dextroscoliosis of the thoracolumbar junction noted. No listhesis. Diffuse degenerative disc disease is most pronounced in the mid to upper lumbar and mid to upper thoracic spine. Soft tissues: No paravertebral stripe thickening. Diffuse and ground-glass predominance is noted in both lungs Bronchial wall thickening noted. IMPRESSION: Dextroscoliosis at the thoracolumbar junction. Mild levoscoliosis of the mid to lower thoracic spine. Multilevel degenerative disc disease. No acute bony abnormality. Dictated by: Tiffany Mcneill M.D. on 10/17/2025 at 20:19 Approved by: Tiffany Mcneill M.D. on 10/17/2025 at 20:22
--- NOTE | 2025-10-17 11:19 | DI.RAD.S_ITS ---
PROCEDURE: XR LUMBAR SPINE 2-3V INDICATIONS: back pain TECHNIQUE: 3 views of the lumbar spine were acquired. COMPARISON: [facility], CR, XR LUMBAR SPINE 2-3V, 02/20/2023, 13:05. FINDINGS: Bones: 5 nonrib-bearing vertebrae are present. No acute vertebral body compression fractures. No suspicious bony lesions. Grade 1 L2 on L3 and L1 on L2 retrolisthesis. Chronic anterior wedge compression deformity of L1 and L2 of up to 20-25%. Diffuse multilevel disc narrowing is most pronounced at the moderate to marked L1-2 and L2-3 and L3-4 disc narrowing. Multilevel facet arthropathy is most pronounced at L4-5 and L5-S1. Soft tissues: Overlying bowel gas pattern is normal. No suspicious soft tissue calcifications. IMPRESSION: Multilevel degenerative disc disease with levoscoliosis of the thoracic spine . No acute bony abnormality. Dictated by: Tiffany Mcneill M.D. on 10/17/2025 at 20:22 Approved by: Tiffany Mcneill M.D. on 10/17/2025 at 20:24
== END ==
PROVIDERS: PCP Family Medicine; Referring Provider Family Medicine; Visit Provider Family Medicine
DX: M51.34 Other intervertebral disc degeneration, thoracic region (principal); M51.16 Intervertebral disc disorders with radiculopathy, lumbar region; M47.26 Other spondylosis with radiculopathy, lumbar region; M47.27 Other spondylosis with radiculopathy, lumbosacral region; M41.9 Scoliosis, unspecified; M43.8X6 Other specified deforming dorsopathies, lumbar region; G89.29 Other chronic pain
CPT/HCPCS: 72072; 72100